=== PATIENT | female | born 1945 ===

== ENCOUNTER 2016-09-13 06:50 | Day surgery (SDC) | payer MEDICARE, OTHER ==
--- NOTE | ~2016-09-13 | EGD ---
EGD REPORT [facility] [address] [id number] NAME: GUNJAN STEIN : [birth year] [place]US : [place] [facility] [place] PAT#: [id number] AGE: 70 ADM/REG DATE : 09/13/16 MR#: [id number] REPORT SERV DATE: 09/13/16 DICTATED BY: RAMAN HOLLIS DATE: 09/13/16 REPORT STATUS : Draft TRANSCRIBED BY: [facility] DATE: 09/13/16 [facility] Center Patient Name: Gunjan Stein Date of : 1945 Attending MD: RAMAN HOLLIS MD Procedure Date No Time: 09/13/2016 Procedure: Colonoscopy Indications: Screening for colorectal malignant neoplasm Referring MD: ANGEL LUIS RICKETTS MD Medicines: Monitored Anesthesia Care Complications: No immediate complications. Procedure: Pre-Anesthesia Assessment: - ASA Grade Assessment: III - A patient with severe systemic disease. After I obtained informed consent, the scope was passed under direct vision. Throughout the procedure, the patient's blood pressure, pulse, and oxygen saturations were monitored continuously. The PCF [id number] was introduced through the anus and advanced to the cecum, identified by appendiceal orifice and ileocecal valve. The colonoscopy was performed with moderate difficulty due to significant looping. Successful completion of the procedure was aided by applying abdominal pressure. The patient tolerated the procedure well. The quality of the bowel preparation was good. Findings: The digital rectal exam was normal. Pertinent negatives include no palpable rectal lesions. Diverticula were found in the sigmoid colon. A sessile polyp was found in the transverse colon. The polyp was 5 mm in size. The polyp was removed with a cold biopsy forceps. Resection and retrieval were complete. Hemorrhoids were found during retroflexion and were mild. Impression: - Diverticulosis in the sigmoid colon. - One 5 mm polyp in the transverse colon. Resected and retrieved. - Hemorrhoids. Recommendation: - Patient has a contact number available for emergencies. The signs and symptoms of potential delayed complications were discussed with the patient. Return to normal activities tomorrow. Written discharge instructions were provided to the patient. EGD REPORT [address] [address] NAME: GUNJAN STEIN : [birth year] STATUS : [facility] [place] PAT#: [id number] AGE: 70 ADM/REG DATE : 09/13/16 MR#: [id number] REPORT SERV DATE: 09/13/16 DICTATED BY: RAMAN HOLLIS DATE: 09/13/16 REPORT STATUS : Draft TRANSCRIBED BY: [employer] DATE: 09/13/16 - Regular diet. - Continue present medications. - Repeat colonoscopy in 5-10 years for surveillance based on pathology results. - Return to GI clinic PRN. Procedure Code(s): --- Professional --- 75707, Colonoscopy, flexible, proximal to splenic flexure; with biopsy, single or multiple Diagnosis Code(s): --- Professional --- K64.9, Unspecified hemorrhoids K57.30, Diverticulosis of large intestine without perforation or abscess without bleeding D12.3, Benign neoplasm of transverse colon Z12.11, Encounter for screening for malignant neoplasm of colon CPT copyright 2013 [employer]. All rights reserved. The codes documented in this report are preliminary and upon music researcher review may be revised to meet current compliance requirements. RAMAN HOLLIS MD 09/13/2016 8:50 AM This report has been signed electronically. Number of Addenda: 0 Note Initiated On: 09/13/2016 8:25 AM Scope Withdrawal Time 0 hours 7 minutes 15 seconds [id number] [id number]
[~2016-09-13 06:50] MED LIST: ASAB PO; JANUMET1 TA1 PO; LIPITOR40 PO; LOP25 PO; MULTIVITAMI1 PO; PRILO PO; PRIN5 PO
== END 2016-09-13 23:59 | disposition home or self-care (01) ==
LOC: DMU 06:50
PROVIDERS: Internal Medicine Gastroenterology
PROC: 0DBL8ZX Excision of Transverse Colon, Via Natural or Artificial Opening Endoscopic, Diagnostic (ICD-10-PCS; principal; 2016-09-13 08:30)
DX: Z12.11 Encounter for screening for malignant neoplasm of colon (principal); D12.3 Benign neoplasm of transverse colon; K64.9 Unspecified hemorrhoids; K57.30 Diverticulosis of large intestine without perforation or abscess without bleeding; E11.9 Type 2 diabetes mellitus without complications; K21.9 Gastro-esophageal reflux disease without esophagitis; I10 Essential (primary) hypertension; I25.10 Atherosclerotic heart disease of native coronary artery without angina pectoris; Z79.82 Long term (current) use of aspirin; Z79.899 Other long term (current) drug therapy; Z90.710 Acquired absence of both cervix and uterus; Z98.41 Cataract extraction status, right eye; Z95.1 Presence of aortocoronary bypass graft; Z98.890 Other specified postprocedural states
CPT/HCPCS: 82962; 88305